=== PATIENT | male | born 1945 | race Caucasian/White ===

== ENCOUNTER → 2020-04-20 14:00 | Outpatient (CLI) | payer OTHER, SELFPAY ==
--- NOTE | ~2020-04-20 | XR_ITS ---
EXAMINATION: XR knee LT 2V DATE: 04/20/2020 14:50 INDICATION: Left knee pain. TECHNIQUE: 2 views of left knee were obtained. COMPARISON: None. FINDINGS: Bone alignment is normal. No fracture. There is mild tricompartmental osteoarthritis. No kn ee joint effusion. IMPRESSION: 1. Mild left knee osteoarthritis. Reviewed, dictated and finalized at location A. LITY MANAGER
--- NOTE | ~2020-04-20 | XR_ITS ---
EXAMINATION: XR knee RT 2V DATE: 04/20/2020 14:47 INDICATION: Right knee pain. TECHNIQUE: 2 views of right knee were obtained. COMPARISON: None. FINDINGS: Bone alignment is normal. No fracture. There is mild tricompartmental osteoarthritis. No kn ee joint effusion. IMPRESSION: 1. Mild right knee osteoarthritis. Reviewed, dictated and finalized at location A. ENTRY ASSISTANT
--- NOTE | ~2020-04-20 | XR_ITS ---
EXAMINATION: XR chest 2V EXAM DATE: 04/20/2020 14:46 INDICATION: Z87.891 Personal history of nicotine dependence . TECHNIQUE: Frontal and lateral projections of the chest obtained and reviewed. There is no prior alfonso dy for comparison. FINDINGS: The lungs are clear. There are no pleural effusions. The cardiomediastinal silhouette is within normal limits. There is no pneumothorax suspected. The bones and soft tissues are unremarkab le. IMPRESSION: Unremarkable chest x-ray exam. Reviewed, dictated and finalized at location B. ER OUT
== END ==
PROVIDERS: PCP Family Medicine; Visit Provider Family Medicine
DX: Z87.891 Personal history of nicotine dependence (principal); M17.0 Bilateral primary osteoarthritis of knee
CPT/HCPCS: 71046; 73560